=== PATIENT | male | born 1990 | race Caucasian/White ===

== ENCOUNTER 2021-10-27 16:59 | Emergency (ER) | payer OTHER, SELFPAY ==
[2021-10-27 17:04] VITALS: PULSE 61; RESP 18; O2SAT 99; BMI 23.7
[2021-10-27 17:11] VITALS: BP 140/95; PULSE 61; RESP 20; TEMP 36.9; O2SAT 100
--- NOTE | 2021-10-27 18:30 | ED.WOUNDLAC ---
HPI - Wound/Laceration General Chief Complaint: Laceration/Wound Stated Complaint: RIGHT LEG LACERATION Time Seen by Provider: 10/27/21 17:06 History of Present Illness HPI narrative: This 31-year-old male comes in with an injury to his right lower extremity. 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 He has an 8 cm linear laceration over the right tibia midway between the knee and the ankle. The patient states that he thinks his tetanus is up-to-date but record show that his last tetanus was in 2002. Related Data Allergies Allergy/AdvReac Type Severity Reaction Status Date / Time Penicillins Allergy Verified 10/27/21 17:26 Review of Systems Narrative: Constitutional: No fevers, no weight gain or loss. Eyes: No discharge. No vision changes. HENT: No congestion, no sore throat, no ear pain. Cardiovascular: No chest pain, no palpitations. Respiratory: No shortness of breath, no wheezes, no cough. Gastrointestinal: No abdominal pain, no vomiting, no diarrhea. Genitourinary: No dysuria, no hematuria. Musculoskeletal: Normal range of motion. Skin: No rashes, no pruritis. Neurological: No dizziness, weakness, sensory change, speech change. Endo/Heme/Allergies: No bruising or bleeding. No polydipsia. Pysch: no suicidality, no anxiety, no insomnia. All other systems reviewed and are negative. [facility] Medical History (Updated 10/27/21 @ 18:33 by Lexx Tristan MD) No significant past medical history Social History Smoking Status: Current every day smoker What tobacco products do you use: cigarettes Smoking packs per day: 1 Smoking cigarettes per day: 20.0 Do you use any of these nicotine containing products: None Second hand tobacco smoke exposure: No How often do you have a drink containing alcohol: 2-3 times a week How many standard drinks containing alcohol do you have on a typical day: 3 or 4 How often do you have six or more drinks on one occasion: Less than monthly AUDIT-C Alcohol total score: 5 Non-prescribed substance use: denies use service: No Exam Narrative: Exam Narrative: Constitutional: Well-developed, well-nourished, no acute distress. HEENT: Normocephalic, atraumatic. Neck: Normal range of motion. Nontender. Supple. Heart: Intact distal pulses. Lungs: No chest discomfort. No wheezes, rhonchi, or rales. Abdomen: Nontender. Back: Normal range of motion. Extremities: Normal range of motion. [place] between the knee and the ankle of the right lower extremity overlying the anterior aspect of the tibia is an 8 cm linear laceration. Skin: Intact. No rash. Warm. No erythema or pallor. Neurologic: No altered sensation. No weakness. Alert and oriented. Psychiatric: No suicidality. No anxiety or depression. No insomnia. Nursing notes and vitals signs are reviewed. Const: Vital Signs, click to edit/add: Vital Signs - 24 hr 10/27/21 17:04 10/27/21 17:11 Temperature 98.5 F Pulse Rate [Pulse Oximeter] 61 61 Respiratory Rate 18 20 Blood Pressure [Le ft Upper Arm] 140/95 H Pulse Oximetry 99 100 Course Vital Signs Vital signs: Initial Vital Signs Temperature Source Temporal Artery Scan 10/27/21 17:04 Pulse Rate 61 10/27/21 17:04 Pulse Rhythm 10/27/21 17:04 Respiratory Rate 18 10/27/21 17:04 Pulse Oximetry 99 10/27/21 17:04 Oxygen Delivery Method 10/27/21 17:04 Vital Signs Pulse Rate 61 10/27/21 17:04 Respiratory Rate 18 10/27/21 17:04 Pulse Oximetry 99 10/27/21 17:04 Temperature 98.5 F 10/27/21 17:11 Pulse Rate 61 10/27/21 17:11 Respiratory Rate 20 10/27/21 17:11 Blood Pressure 140/95 H 10/27/21 17:11 Pulse Oximetry 100 10/27/21 17:11 MDM - Wound/Laceration MDM Narrative Medical decision making narrative: This patient has an 8 cm linear laceration needing repair. After anesthesia with 1% lidocaine with epinephrine the wound was irrigated and cleansed. It was also explored to its base. Eleven sutures were placed in interrupted fashion using 4.0 Ethilon suture. Instructions were given regarding wound care and the need for suture removal in 7-10 days. Discharge Plan Discharge Clinical Impression: Laceration Patient Disposition: Home, Self-Care Condition: Stable Additional Instructions: Leg laceration. Keep wound clean and dry. Follow up with MD for suture removal in 7-10 days. Follow Up/Referrals: Provider,Not a Local [Primary Care Provider] - Stand Alone Forms: [employer] Info Instructions
[2021-10-27] MEDS: TETANUS/DIPHTH/PERTUSSIS 0.5 ML SYRINGE IM (18:39)
== END 2021-10-27 18:50 | disposition home or self-care (01) ==
PROVIDERS: Emergency Provider Emergency Medicine Emergency Medical Services
DX: S81.811A Laceration without foreign body, right lower leg, initial encounter (principal); W26.9XXA Contact with unspecified sharp object(s), initial encounter
CPT/HCPCS: 12004; 90471; 90715; 99283